=== PATIENT | male | born 1990 | race Caucasian/White ===

== ENCOUNTER 2021-12-13 12:10 | Emergency (ER) | payer OTHER ==
[~2021-12-13] VITALS: Ht 185.4 cm; Wt 95.3 kg
[2021-12-13 12:17] VITALS: BP_SYST 141
--- NOTE | 2021-12-13 12:21 | NUR ---
Triaged pt and placed in waiting room until bed becomes available. Pt stable.
--- NOTE | 2021-12-13 12:30 | NUR ---
ER at bedside examining patient.
--- NOTE | 2021-12-13 14:32 | NUR ---
SPOKE WITH FAMILY THAT DOES NOT WANT TO WAIT TO BE SEEN, ENCOURAGED THEM TO STAY AND BE SAME. CT HAS BEEN DONE, DR RODRIGUEZ INFORMED
[2021-12-13] MEDS ORDERED: IBUP-1969 PO (14:51)
[2021-12-13 15:07] VITALS: BP_SYST 134
--- NOTE | 2021-12-13 15:09 | NUR ---
Patient given written and verbal discharge instructions and verbalizes understanding. ER MD discussed with patient the results and treatment provided. Patient in stable condition. ID arm band removed. Rx of Motrin given. Patient educated on pain management and to follow up with PMD. Pain Scale 0/10. Opportunity for questions provided and answered. Medication side effect fact sheet provided.
== END 2021-12-13 15:09 | disposition home or self-care (01) ==
LOC: SED 12:10
DX: S00.81XA Abrasion of other part of head, initial encounter (principal); Z79.899 Other long term (current) drug therapy; V49.40XA Driver injured in collision with unspecified motor vehicles in traffic accident, initial encounter; Y93.89 Activity, other specified; Y92.89 Other specified places as the place of occurrence of the external cause; Y99.8 Other external cause status
CPT/HCPCS: 70450-TC; 76376; 99284